=== PATIENT | female | born 1960 | race African-American/Black ===

== ENCOUNTER 2016-11-11 07:59 | Emergency (ER) | payer OTHER ==
[~2016-11-11] VITALS: Ht 167.6 cm; Wt 97.5 kg
--- NOTE | ~2016-11-11 | CT71 ---
[facility] A Service [facility] RADIOLOGY TEXT RESULTS PATIENT: DIANA DURHAM LOCATION: [facility] : 64 UNIT #: [id number] AGE: [address]: Armond Magana DO SEX: F ORDER DR: [id number] [facility]. [place], [place] [address] [id number] E MR#: [id number] Acc #: [id number] NAME: DIANA DURHAM : 1960 SEX: F STUDY DATE/TIME: 11/11/2016 13:04 UNIT: [facility] ROOM: STUDY DESCRIPTION: CT Head Wo Contrast Attending Physician: Armond Magana D.O. Ordering Physician: Armond Magana D.O. Primary Care Physician: Brianne Zhang M.D. MEDICAL IMAGING REPORT This report is preliminary unless electronic signature is present EXAMINATION Noncontrast CT head. DATE 11/11/2016 HISTORY Dizziness for 1 week. Asthma. COMPARISON Noncontrast CT head, 10/08/2016. TECHNIQUE This CT exam was performed with one or more of the following radiation dose reduction techniques: automatic exposure control, adjustment of mA and/or kV according to patient size, and iterative reconstruction. FINDINGS No acute intracranial hemorrhage, mass lesion, mass effect, or midline shift. No evidence of acute or evolving infarct. Chapa matter - white matter junction distinction is preserved. No calvarial abnormalities identified. Ventricular configuration is normal. Mild air and fluid is demonstrated within the right sphenoid sinus and may represent changes and mild sinusitis. Mastoid air cells are clear. IMPRESSION 1. Small amount air and fluid is seen within the right sphenoid sinus. Correlate for sinusitis symptoms. 2. No acute intracranial findings. Dictated by... [facility] A Service [facility] RADIOLOGY TEXT RESULTS PATIENT: DIANA DURHAM LOCATION: [facility] : [birth year] UNIT #: [id number] AGE: [address]: Armond Magana DO SEX: F ORDER DR: Mandy Saab M.D. THIS IS AN ELECTRONICALLY VERIFIED REPORT Mandy Saab M.D. at 11/12/2016 1:11 PM JANNETTE/whitley TD: 11/11/2016 16:51 JOB #: [id number] MEDICAL IMAGING REPORT Page 1 of 1 COPY
--- NOTE | ~2016-11-11 | EKG ---
PATIENT: DIANA DURHAM UNIT #: [id number] Ventricular Rate: 83 BPM Atrial Rate: 83 BPM P-R Interval: 172 ms QRS Duration: 82 ms Q-T Interval: 374 ms QTC Calculation(Bezet): 439 ms P Bacova: 49 degrees Calculated R Bacova: 1 degrees Calculated T Bacova: 38 degrees Diagnosis Line: Normal sinus rhythm Diagnosis Line: Normal ECG Diagnosis Line: When compared with ECG of 24-MAR-2016 11:08, Diagnosis Line: No significant change was found Diagnosis Line: Confirmed by MRAY ANN MADRID MD ([id number]) on Diagnosis Line: 11/11/2016 10:54:37 AM INTERPRETING MD: MERCY FABIAN
--- NOTE | ~2016-11-11 | CT17 ---
[facility] A Service [facility] RADIOLOGY TEXT RESULTS PATIENT: DIANA DURHAM LOCATION: [facility] : [birth year] UNIT #: [id number] AGE: [address]: Armond Magana DO SEX: F ORDER DR: [id number] [facility]. [place], [place] [address] [id number] E MR#: [id number] Acc #: [id number] NAME: DIANA DURHAM : 1960 SEX: F STUDY DATE/TIME: 11/11/2016 13:06 UNIT: [facility] ROOM: STUDY DESCRIPTION: CT Angio Head Attending Physician: Armond Magana D.O. Ordering Physician: Armond Magana D.O. Primary Care Physician: Brianne Zhang M.D. MEDICAL IMAGING REPORT This report is preliminary unless electronic signature is present EXAM CT scan of the head with angiographic reconstructions. INDICATIONS Dizziness for a week. COMPARISON Comparison study from 04/30/2016. TECHNIQUE Patient was given 100 mL of Isovue 370. Spiral imaging was performed from the aortic arch to the brain. 3D reconstructions of the arterial structures were generated. NASCET criteria was utilized. This CT exam was performed with one or more of the following radiation dose reduction techniques: automatic exposure control, adjustment of mA and/or kV according to patient size, and iterative reconstruction. FINDINGS Please see order #[id number] for results. Dictated by... Jamie Chavira M.D. THIS IS AN ELECTRONICALLY VERIFIED REPORT Jamie Chavira M.D. at 11/11/2016 8:18 PM VIVIAN/whitley TD: 11/11/2016 17:36 JOB #: [id number] [facility] A Service [facility] RADIOLOGY TEXT RESULTS PATIENT: DIANA DURHAM LOCATION: [facility] : 64 UNIT #: [id number] AGE: [address]: Hottman,Armond M DO SEX: F ORDER DR: MEDICAL IMAGING REPORT Page 1 of 1 COPY
--- NOTE | ~2016-11-11 | CT23 ---
[facility] A Service of [facility] RADIOLOGY TEXT RESULTS PATIENT: DIANA DURHAM LOCATION: [facility] : 64 UNIT #: [id number] AGE: [address]: Armond Magana DO SEX: F ORDER DR: [id number] [facility] [address] [place], [place] [address] [id number] E MR#: [id number] Acc #: [id number] NAME: DIANA DURHAM : 1960 SEX: F STUDY DATE/TIME: 11/11/2016 13:06 UNIT: [facility] ROOM: STUDY DESCRIPTION: CT Angio Neck Attending Physician: Armond Magana D.O. Ordering Physician: Armond Magana D.O. Primary Care Physician: Brianne Zhang M.D. MEDICAL IMAGING REPORT This report is preliminary unless electronic signature is present EXAM CT scan of the head and neck with angiographic reconstructions. INDICATIONS Dizziness for a week. COMPARISON Comparison study from 04/30/2016. TECHNIQUE Patient was given 100 mL of Isovue 370. Spiral imaging was performed from the aortic arch to the brain. 3D reconstructions of the arterial structures were generated. NASCET criteria was utilized. This CT exam was performed with one or more of the following radiation dose reduction techniques: automatic exposure control, adjustment of mA and/or kV according to patient size, and iterative reconstruction. FINDINGS The lung apices are clear. The thyroid gland, submandibular glands and parotid glands are normal in appearance. There are no neck masses or adenopathy identified. The ventricles and subarachnoid spaces are normal. There are no masses or extraaxial fluid collections. VASCULAR FINDINGS: Aortic arch is normal in size. The three great vessels have separate origins that do not show any significant stenosis. The vertebral arteries both arise from the subclavian arteries. The left ne is slightly larger. These vessels are normal and they unite to form the basilar artery. The common carotid arteries, carotid bifurcations, and internal carotid arteries have a normal appearance. The basilar artery and posterior cerebral arteries are normal in appearance. The middle and anterior cerebral artery is normal in appearance. Anterior communicating artery is visible. There is no aneurysm visible. STS. [facility] A Service of [facility] RADIOLOGY TEXT RESULTS PATIENT: DIANA DURHAM LOCATION: [facility] #: [id number] : [birth year] UNIT #: [id number] AGE: [address]: Armond Magana DO SEX: F ORDER DR: ROSETTE Normal CTA of the head and neck. There is no evidence of stenosis, occlusion or aneurysm. Dictated by... Jamie Chavira M.D. THIS IS AN ELECTRONICALLY VERIFIED REPORT Jamie Chavira M.D. at 11/11/2016 8:18 PM VIVIAN/whitley TD: 11/11/2016 17:30 JOB #: [id number] MEDICAL IMAGING REPORT Page 1 of 1 COPY
[2016-11-11 08:24] LABS: BASOPHIL# 0.1 X10e3 (0-0.3); BASOPHIL% 0.8 % (0-2.5); EOSINOPHIL# 0.3 X10e3 (0-0.7); EOSINOPHIL% 3.9 % (0.0-7.0); HEMATOCRIT 41.3 % (35.0-45.0); HEMOGLOBIN 13.9 gm/dL (12.0-16.0); LYMPHOCYTE# 1.3 X10e3 (1.0-3.5); LYMPHOCYTE% 19.4 % (17.0-45.0); MEAN CELL VOLUME 71.2 FL (83-96); MEAN CORPUSCULAR HEMOGLOBIN 24.1 PG (28-34); MEAN CORPUSCULAR HGB CONC 33.8 g/dL (30-36); MEAN PLATELET VOLUME 7.6 FL (6.5-11.5); MONOCYTE# 0.4 X10e3 (0-1.0); MONOCYTE% 6.4 % (3.0-12.0); NEUTROPHIL# 4.7 X10e3 (1.5-7.1); NEUTROPHIL% 69.5 % (40-75); PLATELET COUNT 276 X10e3 (140-420); RED CELL DISTRIBUTION WIDTH 16.5 % (11.0-15.5); WHITE BLOOD COUNT 6.7 X10e3 (4.0-10.5)
[2016-11-11 08:44] LABS: DIFF IND NO
[2016-11-11 08:49] LABS: BILIRUBIN, DIRECT 0.1 mg/dL (0.0-0.2); BILIRUBIN,TOTAL 1.1 mg/dL (0.2-2.0); BUN/CREATININE RATIO 21.66; CALCIUM SERUM 8.9 mg/dL (8.4-10.2); CREATININE SERUM 0.6 mg/dL (0.6-1.4); GLOM FILT RATE Estimated 119.8 mL/min (>60); POTASSIUM 3.8 mmol/L (3.5-5.1); PROTEIN TOTAL SERUM 7.3 g/dL (6.0-8.3)
[2016-11-11 09:58] LABS: POC - CKMB 2.3 ng/mL (0.0-7.9); POC - TROPONIN <0.05 ng/mL (<=0.05)
[2016-11-11 11:29] LABS: URINE SOURCE CLEAN CATCH
[2016-11-11 11:34] LABS: URINE APPEARANCE CLEAR; URINE BILIRUBIN NEG (NEG); URINE BLOOD NEG (NEG); URINE COLOR YELLOW; URINE GLUCOSE >1000 MG/DL (NEG); URINE KETONE NEG (NEG); URINE LEUKOCYTE ESTERASE NEG (NEG); URINE NITRATE NEG (NEG); URINE PROTEIN NEG (NEG); URINE SPECIFIC GRAVITY 1.023 (1.003-1.035); URINE UROBILINOGEN 0.2 MG/DL (NEG)
[2016-11-11 11:52] LABS: CULTURE INDICATED? NO
== END 2016-11-11 14:40 | disposition home or self-care (01) ==
LOC: CED 07:59
PROVIDERS: Emergency Medicine
DX: R42 Dizziness and giddiness (principal); E11.9 Type 2 diabetes mellitus without complications; J45.909 Unspecified asthma, uncomplicated; Z90.710 Acquired absence of both cervix and uterus
CPT/HCPCS: 36415; 70450; 70496; 70498; 80048; 80076; 81003; 82553; 82947; 84484; 85025; 87086; 93005; 96374; 96375; 99285; J1200; J2060; J2765; Q9967